=== PATIENT | female | born 2000 | race Caucasian/White ===

== ENCOUNTER 2023-05-18 17:51 | Emergency (ER) | payer BC ==
[2023-05-18 20:22] LABS: BILIRUBIN,URINE NEGATIVE (NEGATIVE); COLOR,URINE YELLOW; GLUCOSE,URINE NEGATIVE (NEGATIVE); KETONES,URINE NEGATIVE (NEGATIVE); LEUKOCYTE ESTERASE,URINE MODERATE (NEGATIVE); NITRITE,URINE NEGATIVE (NEGATIVE); OCCULT BLOOD,URINE NEGATIVE (NEGATIVE); PROTEIN,URINE NEGATIVE (NEGATIVE); UROBILINOGEN,URINE 0.2 EU/dL (<2.0)
[2023-05-18 20:45] LABS: APPEARANCE,URINE HAZY
[2023-05-18] MEDS ORDERED: Acetaminophen/oxyCODONE 325-5 MG Tab PO STA (20:49)
[2023-05-18 20:53] LABS: BACTERIA,URINE FEW (NEGATIVE); EPITHELIAL CELLS,URINE FEW (NONE-FEW); MUCUS,URINE LIGHT (NONE-MOD); RBC,URINE 0-2 (0-2/HPF)
[2023-05-18 21:38] LABS: CANDIDA DNA PROBE POSITIVE (NEGATIVE); TRICHOMONAS DNA PROBE NEGATIVE (NEGATIVE)
[2023-05-18 21:39] LABS: GARDNERELLA DNA PROBE NEGATIVE (NEGATIVE)
[2023-05-18] MEDS ORDERED: Fluconazole 100 MG Tab PO STA (21:55)
[2023-05-18] MEDS ORDERED: Cephalexin 500 MG Cap PO STA (21:55)
== END 2023-05-18 22:18 | disposition home or self-care (01) ==
LOC: MW.ED 17:51
DX: N30.00 Acute cystitis without hematuria (principal); B37.31 Acute candidiasis of vulva and vagina
CPT/HCPCS: 76830; 81001; 81025; 87086; 87480; 87510; 87660; 99284; A9270; 58301; 99283